=== PATIENT | female | born 1965 | race Two or more races ===

== ENCOUNTER 2022-12-02 14:16 | Emergency (ER) | payer BC, OTHER ==
[~2022-12-02] VITALS: Ht 152.4 cm; Wt 76.2 kg
[2022-12-02] MEDS ORDERED: HYDROCODONE/APAP 5-325MG TABLET PO ONE (14:45)
[2022-12-02] MEDS ORDERED: HYDR-4209 PO (14:45)
[2022-12-02] MEDS ORDERED: CARI350T PO (14:45)
--- NOTE | 2022-12-02 14:48 | NUR ---
PATIENT TO ROOM WITH FAMILY, INFORMED OF PLAN OF CARE, NO S/S OF ANY DISTRESS NOTED. PATIENT HAS BEEN SEEN BY ER PROVIDER.
[2022-12-02] MEDS ORDERED: HYDROCODONE/APAP 5-325MG TABLET ONE (14:50)
--- NOTE | 2022-12-02 14:57 | NUR ---
PATIENT MEDICATED PER ORDER, REMAINS STABLE FOR DISCHARGE HOME WITH FAMILY MEMBER.
[2022-12-02 14:58] VITALS: BP 124/65
== END 2022-12-02 14:58 | disposition home or self-care (01) ==
LOC: ER 14:16
DX: M54.50 Low back pain, unspecified (principal)
CPT/HCPCS: A4663

== ENCOUNTER 2023-05-03 19:26 | Emergency (ER) | payer BC, OTHER ==
[~2023-05-03] VITALS: Ht 152.4 cm; Wt 77.1 kg
[~2023-05-03 19:26] MED LIST: CARI350T PO; HYDR-4209 PO
[2023-05-03 20:14] LABS: BASOPHILS # (AUTO) 0.1 K/UL (0.0-0.2); BASOPHILS % (AUTO) 0.6 % (0.0-2.0); EOSINOPHILS # (AUTO) 0.2 K/uL (0.0-0.7); EOSINOPHILS % (AUTO) 2.5 % (0.0-7.0); HEMATOCRIT 36.3 % (31.2-41.9); HEMOGLOBIN 12.7 g/dL (10.9-14.3); LYMPHOCYTES # (AUTO) 2.4 K/uL (0.8-4.8); LYMPHOCYTES % (AUTO) 28.9 % (20.5-51.5); MEAN CORPUSCULAR HEMOGLOBIN 32.4 uug (24.7-32.8); MEAN CORPUSCULAR HGB CONC 35 g/dL (32.3-35.6); MEAN CORPUSCULAR VOLUME 92.5 fL (75.5-95.3); MONOCYTES # (AUTO) 0.7 K/uL (0.1-1.30); MONOCYTES % (AUTO) 8.1 % (0.0-11.0); NEUTROPHILS # (AUTO) 5.1 K/uL (1.8-8.9); NEUTROPHILS % (AUTO) 59.9 % (38.5-71.5); PLATELET COUNT (AUTO) 229 K/uL (179-408); RED BLOOD CELL COUNT(AUTO) 3.93 MIL/uL (3.63-4.92); WHITE BLOOD COUNT (AUTO) 8.5 K/uL (3.8-11.8)
[2023-05-03 20:25] LABS: DIFFERENTIAL COMMENT 1
[2023-05-03 20:26] LABS: CALCIUM 8.9 mg/dL (8.5-10.1); CREATININE 0.9 mg/dL (0.6-1.3); POTASSIUM 4.2 mmol/L (3.5-5.1)
[2023-05-03] MEDS ORDERED: ACET1TAB23 PO (21:06)
[2023-05-03] MEDS ORDERED: NAPR-1164 PO (21:06)
[2023-05-03 21:12] VITALS: BP 148/100; O2SAT 100
== END 2023-05-03 21:12 | disposition home or self-care (01) ==
LOC: ER 19:28
DX: M25.561 Pain in right knee (principal); I10 Essential (primary) hypertension; Z79.899 Other long term (current) drug therapy
CPT/HCPCS: 36415; 73562; 85025; A4606; A4663

== ENCOUNTER 2025-03-10 15:58 | Emergency (ER) | payer BC, OTHER ==
[~2025-03-10] VITALS: Ht 152.4 cm; Wt 74.8 kg
[~2025-03-10 15:58] MED LIST changes: +ACET1TAB23 PO; +NAPR-1164 PO
[2025-03-10 16:07] VITALS: BP 115/83
[2025-03-10] MEDS ORDERED: KETOROLAC TROMETHAMINE 30 MG INJ IVP ONE (17:30)
[2025-03-10] MEDS ORDERED: KETOROLAC TROMETHAMINE 30 MG INJ ONE (18:18)
[2025-03-10] MEDS ORDERED: ONDANSETRON ODT 4 MG TAB.RAPDIS ONE (18:18)
[2025-03-10] MEDS ORDERED: HYDROMORPHONE 2 MG/1 ML DISP.SYRIN ONE (18:19)
[2025-03-10] MEDS: ONDANSETRON ODT 4 MG TAB.RAPDIS SL ONE (18:25)
[2025-03-10] MEDS: HYDROMORPHONE 1 MG/1 ML DISP.SYRIN IM ONE (18:25)
[2025-03-10] MEDS: KETOROLAC TROMETHAMINE 30 MG INJ IM ONE (18:26)
[2025-03-10] MEDS ORDERED: NAPR500T6 PO (18:46)
[2025-03-10] MEDS ORDERED: OXYC-128 PO (18:46)
[2025-03-10 19:18] VITALS: BP 115/83; O2SAT 97
== END 2025-03-10 19:19 | disposition home or self-care (01) ==
LOC: ER 15:58
DX: S39.012A Strain of muscle, fascia and tendon of lower back, initial encounter (principal); X58.XXXA Exposure to other specified factors, initial encounter; Y93.89 Activity, other specified; Y92.89 Other specified places as the place of occurrence of the external cause; Y99.8 Other external cause status
CPT/HCPCS: 99284; 72100; 96372 ×2; J1885; J1171; A4606; A4663; Q0162